=== PATIENT | female | born 1960 | race American Indian/Alaskan Native ===

== ENCOUNTER 2017-06-10 14:10 | Emergency (ER) | payer BC, OTHER ==
--- NOTE | 2017-06-10 14:19 | Emergency Department Report ---
Stated Complaint: SEVERE ABD PAIN Time Seen by Provider: 06/10/17 14:14 - HPI History of Present Illness: PT states she is having abd pain, N/V/D since last night. PT states her symptoms started after she ate a piece of grilled chicken and some ice cream. - ROS Review of Systems: + abd pain + lower abd cramps + n/v/d - Exam Physical Exam: PT looks well, non toxic. abd is soft and non tender at this time. MSE screening note: Focused history and physical exam performed. Due to findings the following was ordered: labs ED Disposition for MSE Condition: Stable
[2017-06-10 14:47] LABS: Basophils % (Auto) 0.2 % (0.0-1.8); Eosinophils % (Auto) 0.3 % (0.0-4.3); Hematocrit 38.5 % (30.3-42.9); Hemoglobin 12.5 gm/dl (10.1-14.3); Mean Corpuscular HGB Conc 32 % (30-34); Mean Corpuscular Hemoglobin 28 pg (28-32); Mean Corpuscular Volume 85 fl (79-97); Platelet Count 266 K/mm3 (140-440); Red Blood Count 4.51 M/mm3 (3.65-5.03); Red Cell Distribution Width 15.5 % (13.2-15.2); White Blood Count 8.5 K/mm3 (4.5-11.0)
[2017-06-10 14:58] LABS: INR 1.01 (0.87-1.13)
[2017-06-10 14:59] LABS: Partial Thromboplastin Time 26.8 Sec. (24.2-36.6)
[2017-06-10 15:00] LABS: Alanine Aminotransferase 24 units/L (7-56); Albumin 4.3 g/dL (3.9-5); Albumin/Globulin Ratio 1.1 %; Alkaline Phosphatase 59 units/L (35-129); Anion Gap 18 mmol/L; Blood Urea Nitrogen 14 mg/dL (7-17); Calcium 9.9 mg/dL (8.4-10.2); Carbon Dioxide 29 mmol/L (22-30); Chloride 98.4 mmol/L (98-107); Glucose 126 mg/dL (65-100); Lipase 30 units/L (13-60); Potassium 3.2 mmol/L (3.6-5.0); Sodium 142 mmol/L (137-145); Total Protein 8.3 g/dL (6.3-8.2)
[2017-06-10 20:15] VITALS: BP 151/81
[2017-06-10 20:16] LABS: Bilirubin,Urine NEG (Negative); Blood,Urine NEG (Negative); Ketones,Urine TR mg/dL (Negative); Leukocyte Esterase,Urine SM (Negative); Mucus,Urine FEW /HPF; Nitrite,Urine NEG (Negative); Protein,Urine <15 mg/dL mg/dL (Negative); Urobilinogen,Urine < 2.0 mg/dL (<2.0)
[2017-06-10] MEDS ORDERED: ZOFRAN IV ONE (20:20)
[2017-06-10] MEDS ORDERED: NACL 0.9% 1000 ML 1,000 ML IV ONE ×2 (20:20→20:21)
[2017-06-10] MEDS ORDERED: K-DUR PO ONE (20:21)
[2017-06-10] MEDS ORDERED: PROTONIX IV ONE (20:21)
[2017-06-10 20:27] LABS: Bacteria,Urine 1+ /HPF (Negative)
--- NOTE | 2017-06-10 20:54 | Emergency Department Report ---
ED N/V/D HPI - General Chief complaint: Nausea/Vomiting/Diarrhea Stated complaint: SEVERE ABD PAIN Time Seen by Provider: 06/10/17 14:14 Source: patient Mode of arrival: Ambulatory Limitations: No Limitations - History of Present Illness Initial comments: 57-year-old female with a past medical history of hypertension and previous hysterectomy presents to the hospital complaints of nausea, vomiting, diarrhea since last night. Patient ate chicken and macaroni and cheese at a cookout last night. She states no one else with similar symptoms. At 1 AM patient developed generalized significant cramping abdominal pain rated 8/10 in intensity with associated vomiting, by mouth intolerance, and mild diarrhea. Patient states initially vomiting stomach contents but then became slightly bloody. Patient also stated she noted some blood in her stool. No reports of fevers, recent travel, sick contacts. Patient has had URI symptoms for last several weeks. - Related Data Home Medications Medication Instructions Recorded Confirmed Last Taken Aspirin [Aspirin BABY CHEW TAB] 81 mg PO DAILY PRN 11/11/14 11/11/14 Unknown Iron Fum&Polysac#1/FA/Mv No.18 1 cap PO DAILY 11/11/14 11/11/14 Unknown [Se-Amato Plus Capsule] Naproxen Sodium (Nf) [Anaprox Ds 550 mg PO DAILY 11/11/14 11/11/14 Unknown (Nf)] Naproxen Sodium [Aleve] 220 mg PO Q8H PRN 11/11/14 11/11/14 11/11/14 Potassium Chloride [K-Dur] 10 meq PO QDAY 11/11/14 11/11/14 Unknown Triamter/Hctz 75-50 mg [Maxzide 1 tab PO DAILY 11/11/14 11/11/14 Unknown 75-50 mg] Previous Rx's Medication Instructions Recorded Last Taken Type Dicyclomine [Bentyl] 20 mg PO QID #20 tablet 11/11/14 Unknown Rx Pantoprazole [Protonix] 40 mg PO QDAY #30 tablet 11/11/14 Unknown Rx Ciprofloxacin HCl [Ciprofloxacin 500 mg PO Q12H #7 tab 06/10/17 Unknown Rx TAB] Promethazine [Phenergan TAB] 25 mg PO Q6H PRN #20 tablet 06/10/17 Unknown Rx Allergies Allergy/AdvReac Type Severity Reaction Status Date / Time No Known Allergies Allergy Verified 11/11/14 10:35 ED Review of Systems ROS: Stated complaint: SEVERE ABD PAIN Other details as noted in HPI Comment: All other systems reviewed and negative Other: Constitutional: No fevers chills or weight loss Eyes: No eye pain visual changes or discharge ENT: No ear pain or throat pain Neck: Denies pain Respiratory: Denies cough wheezing shortness of breath Cardiovascular: Denies chest pain, palpitations, syncope GI: As per HPI : Denies dysuria Musculoskeletal: Denies back pain, joint swelling Skin: Denies rash, lesions, erythema Neurologic: Denies headache, numbness, weakness Psychiatric: Denies suicidal ideation, hallucinations ED Past Medical Hx - Past Medical History Previous Medical History?: Yes Hx Hypertension: Yes - Surgical History Additional Surgical History: Hystrectomy - Social History Smoking Status: Never Smoker Substance Use Type: None - Medications Home Medications: Home Medications Medication Instructions Recorded Confirmed Last Taken Type Aspirin [Aspirin BABY CHEW TAB] 81 mg PO DAILY PRN 11/11/14 11/11/14 Unknown History Dicyclomine [Bentyl] 20 mg PO QID #20 tablet 11/11/14 Unknown Rx Iron Fum&Polysac#1/FA/Mv No.18 1 cap PO DAILY 11/11/14 11/11/14 Unknown History [Se-Amato Plus Capsule] Naproxen Sodium (Nf) [Anaprox Ds 550 mg PO DAILY 11/11/14 11/11/14 Unknown History (Nf)] Naproxen Sodium [Aleve] 220 mg PO Q8H PRN 11/11/14 11/11/14 11/11/14 History Pantoprazole [Protonix] 40 mg PO QDAY #30 tablet 11/11/14 Unknown Rx Potassium Chloride [K-Dur] 10 meq PO QDAY 11/11/14 11/11/14 Unknown History Triamter/Hctz 75-50 mg [Maxzide 1 tab PO DAILY 11/11/14 11/11/14 Unknown History 75-50 mg] Ciprofloxacin HCl [Ciprofloxacin 500 mg PO Q12H #7 tab 06/10/17 Unknown Rx TAB] Promethazine [Phenergan TAB] 25 mg PO Q6H PRN #20 tablet 06/10/17 Unknown Rx ED Physical Exam - General Limitations: No Limitations - Other Other exam information: General: No limitations, patient is alert in no acute distress Head exam: Atraumatic, normocephalic Eyes exam: Normal appearance, pupils equal reactive to light, extraocular movements intact ENT: Moist mucous membrane, normal oropharynx Neck exam: Normal inspection, full range of motion, no meningismus nontender Respiratory exam: Clear to auscultation bilateral, no wheezes, rales, crackles Cardiovascular: Normal rate and rhythm, normal heart sounds Abdomen: Soft, nondistended, mild generalized soreness to palpation, with normal bowel sounds, no rebound, or guarding Rectal: Guaiac positive brown stool no gross blood or melena Extremity: Full range of motion normal inspection no deformity Back: Normal Inspection, full range of motion, no tenderness Neurologic: Alert, oriented x3, cranial nerves intact, no motor or sensory deficit Psychiatric: normal affect, normal mood Skin: Warm, dry, intact ED Course Vital Signs 06/10/17 06/10/17 06/10/17 14:16 19:35 21:10 Temperature 98.1 F 98.5 F Pulse Rate 98 H 85 Respiratory 18 20 18 Rate Blood Pressure 170/90 Blood Pressure 151/81 [Left] O2 Sat by Pulse 97 100 Oximetry ED Medical Decision Making - Lab Data Result diagrams: 06/10/17 14:20 06/10/17 14:20 Lab Results 06/10/17 06/10/17 06/10/17 Range/Units 14:20 14:20 14:20 WBC 8.5 (4.5-11.0) K/mm3 RBC 4.51 (3.65-5.03) M/mm3 Hgb 12.5 (10.1-14.3) gm/dl Hct 38.5 (30.3-42.9) % MCV 85 (79-97) fl MCH 28 (28-32) pg MCHC 32 (30-34) % RDW 15.5 H (13.2-15.2) % Plt Count 266 (140-440) K/mm3 Lymph % (Auto) 24.6 (13.4-35.0) % Finney % (Auto) 4.9 (0.0-7.3) % Eos % (Auto) 0.3 (0.0-4.3) % Baso % (Auto) 0.2 (0.0-1.8) % Lymph # 2.1 (1.2-5.4) K/mm3 Finney # 0.4 (0.0-0.8) K/mm3 Eos # 0.0 (0.0-0.4) K/mm3 Baso # 0.0 (0.0-0.1) K/mm3 Seg Neutrophils % 70.0 (40.0-70.0) % Seg Neutrophils # 6.0 (1.8-7.7) K/mm3 PT 13.2 (12.2-14.9) Sec. INR 1.01 (0.87-1.13) APTT 26.8 (24.2-36.6) Sec. Sodium 142 (137-145) mmol/L Potassium 3.2 L (3.6-5.0) mmol/L Chloride 98.4 (98-107) mmol/L Carbon Dioxide 29 (22-30) mmol/L Anion Gap 18 mmol/L BUN 14 (7-17) mg/dL Creatinine 1.0 (0.7-1.2) mg/dL Estimated GFR > 60 ml/min BUN/Creatinine Ratio 14.00 % Glucose 126 H (65-100) mg/dL Calcium 9.9 (8.4-10.2) mg/dL Total Bilirubin 0.50 (0.1-1.2) mg/dL AST 32 (5-40) units/L ALT 24 (7-56) units/L Alkaline Phosphatase 59 (35-129) units/L Total Protein 8.3 H (6.3-8.2) g/dL Albumin 4.3 (3.9-5) g/dL Albumin/Globulin Ratio 1.1 % Lipase 30 (13-60) units/L Urine Color (Yellow) Urine Turbidity (Clear) Urine pH (5.0-7.0) Ur Specific Powell (1.003-1.030) Urine Protein (Negative) mg/dL Urine Glucose (UA) (Negative) mg/dL Urine Ketones (Negative) mg/dL Urine Blood (Negative) Urine Nitrite (Negative) Urine Bilirubin (Negative) Urine Urobilinogen (<2.0) mg/dL Ur Leukocyte Esterase (Negative) Urine WBC (Auto) (0.0-6.0) /HPF Urine RBC (Auto) (0.0-6.0) /HPF U Epithel Cells (Auto) (0-13.0) /HPF Urine Bacteria (Auto) (Negative) /HPF Urine Mucus /HPF 06/10/17 06/10/17 Range/Units 19:30 21:30 WBC (4.5-11.0) K/mm3 RBC (3.65-5.03) M/mm3 Hgb (10.1-14.3) gm/dl Hct (30.3-42.9) % MCV (79-97) fl MCH (28-32) pg MCHC (30-34) % RDW (13.2-15.2) % Plt Count (140-440) K/mm3 Lymph % (Auto) (13.4-35.0) % Finney % (Auto) (0.0-7.3) % Eos % (Auto) (0.0-4.3) % Baso % (Auto) (0.0-1.8) % Lymph # (1.2-5.4) K/mm3 Finney # (0.0-0.8) K/mm3 Eos # (0.0-0.4) K/mm3 Baso # (0.0-0.1) K/mm3 Seg Neutrophils % (40.0-70.0) % Seg Neutrophils # (1.8-7.7) K/mm3 PT (12.2-14.9) Sec. INR (0.87-1.13) APTT (24.2-36.6) Sec. Sodium (137-145) mmol/L Potassium (3.6-5.0) mmol/L Chloride (98-107) mmol/L Carbon Dioxide (22-30) mmol/L Anion Gap mmol/L BUN (7-17) mg/dL Creatinine (0.7-1.2) mg/dL Estimated GFR ml/min BUN/Creatinine Ratio % Glucose (65-100) mg/dL Calcium (8.4-10.2) mg/dL Total Bilirubin (0.1-1.2) mg/dL AST (5-40) units/L ALT (7-56) units/L Alkaline Phosphatase (35-129) units/L Total Protein (6.3-8.2) g/dL Albumin (3.9-5) g/dL Albumin/Globulin Ratio % Lipase (13-60) units/L Urine Color Yellow Yellow (Yellow) Urine Turbidity Clear Clear (Clear) Urine pH 5.0 5.0 (5.0-7.0) Ur Specific Powell 1.019 1.020 (1.003-1.030) Urine Protein <15 mg/dl <15 mg/dl (Negative) mg/dL Urine Glucose (UA) Neg Neg (Negative) mg/dL Urine Ketones Tr Tr (Negative) mg/dL Urine Blood Neg Neg (Negative) Urine Nitrite Neg Neg (Negative) Urine Bilirubin Neg Neg (Negative) Urine Urobilinogen < 2.0 < 2.0 (<2.0) mg/dL Ur Leukocyte Esterase Sm Sm (Negative) Urine WBC (Auto) 12.0 H 7.0 H (0.0-6.0) /HPF Urine RBC (Auto) 3.0 2.0 (0.0-6.0) /HPF U Epithel Cells (Auto) 1.0 3.0 (0-13.0) /HPF Urine Bacteria (Auto) 1+ (Negative) /HPF Urine Mucus Few 1+ /HPF - Medical Decision Making Patient's repeat urine shows persistent urine white cells. She'll be treated with antibiotics. Levaquin initiated in the ED (will provide double coverage for gi sx). Patient tolerating by mouth and feels better with IV fluids and Zofran. We'll discharge home with symptomatic treatment for acute gastroenteritis. Although guaiac is positive stool was brown, no melena, and normal H&H. Outpatient follow-up be encouraged - Differential Diagnosis food poisoning, gastroenteritis, appendicitis, diverticulitis Critical Care Time: No Critical care attestation.: If time is entered above; I have spent that time in minutes in the direct care of this critically ill patient, excluding procedure time. ED Disposition Clinical Impression: Gastroenteritis, Urine WBC increased, Hypokalemia Disposition: DC-01 TO HOME OR SELFCARE Is pt being admited?: No Does the pt Need Aspirin: No Condition: Stable Instructions: Gastroenteritis (ED), Urinary Tract Infection in Women (ED) Additional Instructions: Take the medications as prescribed. Please return if symptoms worsen. Continue To drink plenty of fluids at home. Follow-up with her doctor for further evaluation. Prescriptions: Ciprofloxacin HCl [Ciprofloxacin TAB] 500 mg PO Q12H #7 tab Promethazine [Phenergan TAB] 25 mg PO Q6H PRN #20 tablet PRN Reason: Nausea Referrals: JEFF GUTIERREZ MD [Primary Care Provider] - 2-3 Days Time of Disposition: 23:11
[2017-06-10 22:51] LABS: Bilirubin,Urine NEG (Negative); Blood,Urine NEG (Negative); Ketones,Urine TR mg/dL (Negative); Leukocyte Esterase,Urine SM (Negative); Mucus,Urine 1+ /HPF; Nitrite,Urine NEG (Negative); Protein,Urine <15 mg/dL mg/dL (Negative); Urobilinogen,Urine < 2.0 mg/dL (<2.0)
[2017-06-10] MEDS ORDERED: MACROBID PO ONE (23:06)
[2017-06-10] MEDS ORDERED: LEVAQUIN PO ONE (23:07)
== END 2017-06-10 23:51 | disposition home or self-care (01) ==
LOC: ED 14:10
DX: K52.9 Noninfective gastroenteritis and colitis, unspecified (principal); E87.6 Hypokalemia; D72.829 Elevated white blood cell count, unspecified; I10 Essential (primary) hypertension; Z79.82 Long term (current) use of aspirin
CPT/HCPCS: 36415; 80053; 81001; 82271; 83690; 85025; 85610; 85730; 96361; 96374; 96375; 99284; C9113; J2405; J7030